=== PATIENT | male | born 1975 | race Two or more races ===

== ENCOUNTER 2021-05-01 01:06 | Emergency (ER) | payer SELFPAY ==
[~2021-05-01] VITALS: Ht 165.1 cm; Wt 86.3 kg
--- NOTE | 2021-05-01 01:56 | PHYS DOC ---
General Adult EDM: Chief Complaint: SHORTNESS OF BREATH HPI: HPI: Patient is a 46-year-old male presenting with URI symptoms. Has history of asthma and is vaccinated against COVID-19. Reports yesterday started developing classic upper respiratory symptoms such as nasal congestion, rhinorrhea and postnasal drip. Nothing known makes better or worse, he has not taken anything in attempt to alleviate his symptoms. He has no known sick contacts or recent travel. No other known medical issues. No fever, vision changes, blurred vision, chest pain, shortness of breath, abdominal pain, nausea vomit or diarrhea Review of Systems: Review of Systems: Fourteen body systems of review of systems have been reviewed. See HPI for pertinent positives and negative responses, other edmondson all other systems are negative, non-pertinent or non-contributory Heart Score: C/O Chest Pain: No Risk Factors: Risk Factors: DM, Current or recent (<one month) smoker, HTN, HLP, family history of CAD, obesity. Risk Scores: Score 0 - 3: 2.5% MACE over next 6 weeks - Discharge Home Score 4 - 6: 20.3% MACE over next 6 weeks - Admit for Clinical Observation Score 7 - 10: 72.7% MACE over next 6 weeks - Early Invasive Strategies Physical Exam: PE: General: Appears well, non toxic, and comfortable Skin: Warm, dry. Normal for ethnicity. HEENT: Atraumatic. PERRLA. Rhinorrhea and congestion. Nasal turbinates boggy b/l. Moist mucous membranes. Uvula midline. Maintaining secretions. No phonation changes. Neck: Trachea midline. Normal ROM. No stridor. Respiratory: Normal WOB. CTAB w/o w/r/r. No tachypnea. Cardiovascular: Regular rate and rhythm. Normal peripheral perfusion. Abdomen: Soft. Non tender. No distension. Back: Normal ROM. Musculoskeletal: No swelling or deformity. Neuro: Alert and oriented x 4. MAEE. Lymph: No cervical LAD. Psych: Normal affect and mood. Current Patient Data: Labs: Laboratory Tests Test 05/01/21 02:05 Influenza Type A Antigen Negative Influenza Type B Antigen Negative SARS-CoV-2 Antigen (Rapid) Negative Vital Signs: Vital Signs Date Time Temp Pulse Resp B/P (MAP) Pulse Ox O2 Delivery O2 Flow Rate FiO2 05/01/21 01:45 98.4 78 18 125/81 (96) 98 Room Air 98.4 Vital Signs Date Time Temp Pulse Resp B/P (MAP) Pulse Ox O2 Delivery O2 Flow Rate FiO2 05/01/21 01:45 98.4 78 18 125/81 (96) 98 Room Air 98.4 EKG: EKG: [] Radiology/Procedures: Radiology/Procedures: EXAM: AP View of the chest DATE: 05/01/2021 2:08 AM INDICATION: Reason: COUGH / Spl. Instructions: / History: COMPARISON: No Prior FINDINGS: The heart is not enlarged. Mediastinal and hilar contours are normal. Linear opacity left lung base likely scarring/atelectasis. No pleural effusion or pneumothorax. IMPRESSION: 1. Linear opacity left lung base likely scarring/atelectasis. 2. No lobar consolidation. Electronically signed by: Flavio Pang MD (05/01/2021 2:22 AM) [facility] Course & Med Decision Making: Course & Med Decision Making ABCs unremarkable HPI, physical exam and ER work-up nonconcerning for any emergent or surgical issues Patient likely dealing with viral syndrome, no indication for antibiotic use, discharge home with continued supportive care practices advised and close PCP follow-up when safe to do so Strict return precautions discussed with patient and daughter at bedside with good verbalized understanding, all questions and concerns addressed prior to departure Jamey Disclaimer: Jamey Disclaimer: This electronic medical record was generated, in whole or in part, using a voice recognition dictation system. Departure Departure Impression: Primary Impression: Viral syndrome Disposition: 01 HOME / SELF CARE / HOMELESS Condition: STABLE Referrals: NO PCP (PCP) Additional Instructions: You were seen for upper respiratory symptoms. Your physical exam was reassur ing. Your chest x-ray was normal. We tested you for COVID-19 and flu which were both negative. Your PCR Covid test is still pending. You should take an [id number] antihistamine medication such as Jacklyn, Claritin, Zyrtec or other equivalent in addition to a nasal spray such as Flonase or Afrin to control your symptoms. You should return to the ED if you develop worsening cough, shortness of breath, chest pain, or any other new or concerning symptoms. Alternate Tylenol and ibuprofen as needed for body aches and pain. You should make sure to drink plenty of fluids and get plenty of rest. YOU BURCIAGA DO May 01, 2021 01:56
--- NOTE | 2021-05-01 02:25 | RAD ---
EXAM: AP View of the chest DATE: 05/01/2021 2:08 AM INDICATION: Reason: COUGH / Spl. Instructions: / History: COMPARISON: No Prior FINDINGS: The heart is not enlarged. Mediastinal and hilar contours are normal. Linear opacity left lung base likely scarring/atelectasis. No pleural effusion or pneumothorax. IMPRESSION: 1. Linear opacity left lung base likely scarring/atelectasis. 2. No lobar consolidation. Electronically signed by: Flavio Pang MD (05/01/2021 2:22 AM) LORRAINE
[2021-05-01 02:29] LABS: INFLUENZA A PATIENT NEGATIVE (NEGATIVE); INFLUENZA B PATIENT NEGATIVE (NEGATIVE)
[2021-05-01 02:52] VITALS: BP 110/72
--- NOTE | 2021-05-01 16:07 | NUR ---
IP: Patient notified of negative COVID19 test result. Verbalized understanding.
== END 2021-05-01 03:10 | disposition home or self-care (01) ==
LOC: ER 01:06
DX: B34.9 Viral infection, unspecified (principal); Z20.822 Contact with and (suspected) exposure to COVID-19
CPT/HCPCS: 71045; 87426; 87804; 99284; U0003; U0005